=== PATIENT | female | born 1995 | race Caucasian/White ===

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

== ENCOUNTER 2018-04-20 14:00 | Emergency (ER) | payer MEDICAID ==
[2018-04-20 14:00] VITALS: BMI 23.1
[2018-04-20 14:06] VITALS: TEMP 97.9; O2SAT 100
--- NOTE | 2018-04-20 14:08 | C.PDOC ---
History Of Present Illness 23 y/o female presents to ED with c/o dysuria and vaginal bleeding for 3 days associated with low abdominal pain. Patient states she gave vaginally 10 months ago with no complications. Patient states she noted blood in urine and denies fever, chills, back pain, vaginal discharge, nausea, vomiting, diarrhea, constipation or any other complaints at this time. LMP: 04/09/18 Time Seen by Provider: 04/20/18 14:08 Chief Complaint (Nursing): Female Genitourinary History Per: Patient History/Exam Limitations: no limitations Onset/Duration Of Symptoms: Days Current Symptoms Are (Timing): Still Present Past Medical History Reviewed: Historical Data, Nursing Documentation, Vital Signs Vital Signs: Last Vital Signs Temp 97.9 F 04/20/18 14:02 Pulse 72 04/20/18 14:02 Resp 18 04/20/18 14:02 BP 125/86 04/20/18 14:02 Pulse Ox 100 04/20/18 14:02 - Medical History PMH: No Chronic Diseases Surgical History: No Surg Hx Family History: States: No Known Family Hx - Social History Hx Tobacco Use: No Hx Alcohol Use: No Hx Substance Use: No - Immunization History Hx Tetanus Toxoid Vaccination: No Hx Influenza Vaccination: No Hx Pneumococcal Vaccination: No Review Of Systems Constitutional: Negative for: Fever, Chills Cardiovascular: Negative for: Chest Pain Gastrointestinal: Positive for: Abdominal Pain. Negative for: Nausea, Vomiting, Diarrhea Genitourinary: Positive for: Dysuria, Hematuria, Vaginal Bleeding. Negative for: Frequency, Incontinence, Vaginal Discharge Musculoskeletal: Negative for: Back Pain Skin: Negative for: Rash Physical Exam - Physical Exam Appears: Non-toxic, No Acute Distress Skin: Warm, Dry, No Rash Head: Atraumatic, Normacephalic Eye(s): bilateral: Normal Inspection Oral Mucosa: Moist Neck: Normal ROM, Supple Cardiovascular: Rhythm Regular Respiratory: Normal Breath Sounds, No Rales, No Rhonchi, No Wheezing Gastrointestinal/Abdominal: Soft, Tenderness (Suprapubic), No Guarding, No Rebound Back: No CVA Tenderness Pelvic: Vaginal Discharge (mild yellow), No Cervical Motion Tenderness, No Adnexal Tenderness, Other (No strawberry cervix) Extremity: Normal ROM, No Pedal Edema, Capillary Refill (<2 seconds) Neurological/Psych: Oriented x3, Normal Speech, Normal Cognition ED Course And Treatment - Laboratory Results Result Diagrams: 04/20/18 14:46 04/20/18 14:46 O2 Sat by Pulse Oximetry: 100 (RA) Pulse Ox Interpretation: Normal Medical Decision Making Medical Decision Making: Plan: POC urine preg, Blood work, Transvaginal US ordered Pelvic exam: Mild yellowish discharge, No adnexal tenderness, No CMT. No strawberry cervix(Patient admits to recent unprotected sex) Progress: Patient treated for STD, Azithromycin and Rocephin administered mildly elevated WBC on UA: 5 WBC will rx Disposition - Disposition Disposition: HOME/ ROUTINE Disposition Time: 18:10 Condition: GOOD Forms: [facility] (Nepali) - Clinical Impression Clinical Impression: Screen for STD (sexually transmitted disease), UTI (urinary tract infection) - Scribe Statement The provider has reviewed the documentation as recorded by the Scribcitlalli Navas All medical record entries made by the Scribe were at my direction and personally dictated by me. I have reviewed the chart and agree that the record accurately reflects my personal performance of the history, physical exam, medical decision making, and the department course for this patient. I have also personally directed, reviewed, and agree with the discharge instructions and disposition.
[2018-04-20] MEDS ORDERED: cefTRIAXone (Rocephin) 250 mg Inj IM STA (14:56)
[2018-04-20 15:00] LABS: HEMOGLOBIN 11.3 g/dL (11.0-16.0); MEAN CELL VOLUME 78.8 fL (81.0-99.0); MEAN CORPUSCULAR HEMOGLOBIN 25.2 pg (27.0-31.0); MEAN PLATELET VOLUME 8.2 fL (7.2-11.7); RBC 4.48 Mil/uL (3.80-5.20); RED CELL DISTRIBUTION WIDTH 17.2 % (11.5-14.5)
[2018-04-20 15:03] LABS: ALB/GLOB RATIO 1.5 (1.0-2.1); ALBUMIN 4.5 g/dL (3.5-5.0); ALT/SGPT 18 U/L (9-52); AST/SGOT 16 U/L (14-36); BLOOD UREA NITROGEN 8 mg/dL (7-17); GFR NON-AFRICAN AMERICAN > 60
[2018-04-20 15:08] LABS: SQUAMOUS EPITHIAL 6 /hpf (0-5); URINE BACTERIA RARE (<OCC); URINE BILIRUBIN NEGATIVE (NEGATIVE); URINE BLOOD NEGATIVE (NEGATIVE); URINE CLARITY Hazy (Clear); URINE COLOR Yellow (YELLOW); URINE GLUCOSE (UA) NORMAL (Normal); URINE LEUKOCYTE ESTERASE 2+ Leu/uL (Negative); URINE PROTEIN NEGATIVE (NEGATIVE); URINE UROBILINOGEN NORMAL mg/dL (0.2-1.0)
[2018-04-20] MEDS ORDERED: cefTRIAXone 250 MG in Water For Injection 0.9 ML IM ONE (15:15)
[2018-04-20 16:13] VITALS: BP 110/74; PULSE 67; RESP 17
--- NOTE | 2018-04-20 17:33 | US ---
Date of service: 04/20/2018 HISTORY: abd pain, suprapubic COMPARISON: Comparison made with prior pelvic ultrasound 09/11/2016. TECHNIQUE: Trans abdominal/transvaginal sonographic evaluation of the pelvis performed. FINDINGS: UTERUS: Measures 10.2 x 3.5 x 5.6 cm. Normal in size and appearance. No fibroid or other mass lesion seen. ENDOMETRIUM: Measures anteverted 9.2 mm in diameter. Unremarkable. CERVIX: No cervical abnormality identified. RIGHT OVARY: Measures 3.6 x 2.0 x 3.3 cm. No solid mass. Normal flow. . There is a small cyst right ovary measuring 2.5 x 1.3 x 2.2 cm. LEFT OVARY: Measures 3.1 x 2.3 x 2.3.0 cm. No solid mass. Normal flow. FREE FLUID: Trace amount of free fluid within the cul de sac. Small cyst left ovary measuring 2.2 x 1.5 x 1.6 cm. OTHER FINDINGS: None. IMPRESSION: Small bilateral ovarian cysts. Trace free fluid within the cul sac.
== END 2018-04-20 18:24 | disposition home or self-care (01) ==
LOC: C.ER 14:00
DX: N39.0 Urinary tract infection, site not specified (principal); Z11.3 Encounter for screening for infections with a predominantly sexual mode of transmission
CPT/HCPCS: 76830; 76856; 80053; 81001; 85027; 86850; 86900; 87081; 87491; 87591; 96372; 99283; J0696